=== PATIENT | male | born 1965 | race Caucasian/White ===

== ENCOUNTER 2025-03-31 17:39 | Emergency (ER) | payer SELFPAY ==
[2025-03-31 17:40] VITALS: BMI 23.0
[2025-03-31 18:05] VITALS: BP 157/88; PULSE 81; RESP 18; TEMP 36.9; O2SAT 99
--- NOTE | 2025-03-31 18:33 | PD.EDMALE ---
ED Male Genitalurinary RME/HPI General Chief complaint: Urogenital-Male Stated complaint: SELF CATHETER NOT WORKING FOR 2 DAYS Time Seen by Provider: 03/31/25 18:08 Source: patient, RN notes reviewed and old records reviewed Arrival date/time: 03/31/25 17:39 Mode of arrival: ambulatory Limitations: no limitations RME / HPI RME / HPI Narrative: 59yom presents to ED for 2-day history of self not draining/clogged. Self was placed in this ED 1 month ago. Patient reports burning penile pain. No fever, vomiting, flank pain or hematuria reported. No medications or treatments since onset. Related Data Home Medications ?Medication ?Instructions ?Recorded ?Confirmed levothyroxine 100 mcg capsule 100 mcg PO DAILY 06/04/18 10/24/21 tamsulosin 0.4 mg capsule (Flomax) 0.4 mg PO DAILY 06/04/18 10/24/21 lisinopril 10 mg tablet 10 mg PO QDAY 05/28/19 10/24/21 oxybutynin chloride 10 mg 10 mg PO QDAY 09/20/21 10/24/21 tablet,extended release 24 hr Previous Rx's ?Medication ?Instructions ?Recorded cephalexin 500 mg capsule 500 mg PO QID #40 caps 02/28/25 hydrocodone 5 mg-acetaminophen 325 1 tab PO Q6H PRN pain #16 tabs 02/28/25 mg tablet tamsulosin 0.4 mg capsule (Flomax) 0.4 mg PO QDAY #30 caps 02/28/25 cefdinir 300 mg capsule 300 mg PO BID 7 days #14 caps 03/31/25 fluconazole 150 mg tablet See Rx Instructions .Route 03/31/25 .COMPLEX #2 tabs ibuprofen 600 mg tablet 600 mg PO Q6H PRN pain #20 tabs 03/31/25 tamsulosin 0.4 mg capsule (Flomax) 0.4 mg PO QDAY #90 caps 03/31/25 Allergies Allergy/AdvReac Type Severity Reaction Status Date / Time No Known Allergies Allergy Verified 03/31/25 17:42 Review of Systems Review of Systems Systems Reviewed: All systems reviewed, normal except as documented Constitutional Constitutional: Denies chills and Denies fever(s) Gastrointestinal Gastrointestinal: Denies abdominal pain, Denies nausea and Denies vomiting Genitourinary Genitourinary: Reports dysuria, Denies flank pain, Reports genital pain and Denies hematuria Past Medical History Past Medical History CARDIAC: Positive Hypertension GENITOURINARY: Positive Benign Prostatic Hyperplasia ENDOCRINE: Positive Hypothyroidism Social History SMOKING STATUS: Current every day smoker SUBSTANCE USE: marijuana ED Exam General Limitations: Present no limitations General appearance: Present alert and in no apparent distress Head Head exam: Present atraumatic and normocephalic Eye Eye exam: Present normal appearance, PERRL and EOMI ENT ENT exam: Present normal exam and mucous membranes moist Neck Neck exam: Present normal inspection and full ROM Chest Chest inspection: Present normal inspection and symmetric chest wall rise Respiratory Respiratory exam: Present normal lung sounds bilaterally; Absent respiratory distress Cardiovascular Cardiovascular exam: Present regular rate and normal rhythm Abdominal Exam Abdominal exam: Present soft; Absent distention, tenderness, guarding or rebound Extremities Exam Extremities exam: Present normal inspection and full ROM Neurological Exam Neurological exam: Present alert and oriented X3 Psychiatric Psychiatric exam: Present normal affect and normal mood Skin Skin exam: Present warm, dry, intact and normal color Course Quality Measures none Orders Category Date Time Status Self [Urinary Catheter] QS Care 03/31/25 18:26 Completed UA [Urinalysis] Stat Lab 03/31/25 19:50 Completed Lidocaine Jelly 2% Urojet [Xylocaine Jelly 2% Urojet] Med 03/31/25 19:11 Discontinued See Dose Instructions TOP X1 ONE Vital Signs Vital signs: Vital Signs Temperature 98.4 F 03/31/25 18:05 Pulse Rate 81 03/31/25 18:05 Respiratory Rate 18 03/31/25 18:05 Blood Pressure 157/88 H 03/31/25 18:05 Pulse Oximetry (%) 99 03/31/25 18:05 Oxygen Delivery Method Room Air 03/31/25 18:05 Urogenital - Male MDM Narrative MDM Narrative:: 59yom presents to ED for 2-day history of self not draining/clogged. Self was placed in this ED 1 month ago. Patient reports burning penile pain. No fever, vomiting, flank pain or hematuria reported. No medications or treatments since onset. Self successfully replaced. Will treat for UTI, urine culture sent and pending. Prior culture from 02/28/2025 reviewed. Encouraged close follow-up with urology in clinic. Stable for discharge, RTED precautions given. Patient data External records reviewed:: [facility] previous records (ED visit 02/28/2025 for BPH, Self placement) Clinical information provided by:: patient Social determinants that could affect healthcare access:: other (specify) (Poor access to healthcare, lack of insurance) Patient has the following chronic illnesses:: BPH How is presenting disease/condition affected by chronic disease/condition?: caused by Evaluation data The following diagnostics were reviewed and interpreted by me:: lab results Lab and/or radiology exams considered but not ordered:: None Interpretation Summary: na Medications / Prescriptions Medications or Prescriptions considered but not ordered:: None Medication administrations:: Medication Administration History Discontinued Medications Lidocaine HCl (Lidocaine Jelly 2% (Urojet) 10 Ml Tube) 0 ml TOP X1 ONE Stop: 03/31/25 19:12 Last Admin: 03/31/25 20:03 Dose: 10 ml Documented By: SERINA Comments: unable to scan Above medication administered in ED Consultations Consultation(s) initiated? (list below): No Diagnosis Urogenital Male Differential Diagnosis: urinary tract infection, urethritis, prostatitis and acute retention of urine Most likely diagnosis given after review of the tests above:: Self issue, UTI Admission Indicated Admission indicated?: not indicated Admission Request Was there a request for admission?: No Disposition Plan Disposition Plan: Discharge Discharge Attestation Discharge Attestation: The patient and all family members were given an opportunity to ask questions and understood the discharge instructions. Discharge instructions specifically effects, indications for sooner follow up or return to the emergency department, and the expected course of current diagnosis. Patient condition: Stable Discharge Plan Plan Patient Disposition: HOME (Self Care) Patient condition on transfer: Stable Prescriptions/Referrals Prescriptions/Med Rec: New cefdinir 300 mg capsule 300 mg PO BID 7 Days Qty: 14 0RF ibuprofen 600 mg tablet 600 mg PO Q6H PRN (Reason: pain) Qty: 20 0RF tamsulosin [Flomax] 0.4 mg capsule 0.4 mg PO QDAY Qty: 90 0RF fluconazole 150 mg tablet See Rx Instructions .ROUTE .COMPLEX Qty: 2 0RF Rx Instructions: Take 150mg tab orally now. Repeat dose in 5-7 days. No Action lisinopril 10 mg tablet 10 mg PO QDAY oxybutynin chloride 10 mg tablet extended release 24 hr 10 mg PO QDAY tamsulosin [Flomax] 0.4 mg Capsule 0.4 mg PO DAILY levothyroxine 100 mcg Capsule 100 mcg PO DAILY cephalexin 500 mg capsule 500 mg PO QID Qty: 40 0RF hydrocodone-acetaminophen 5-325 mg tablet 1 tab PO Q6H MDD max 4 tabs per day PRN (Reason: pain) Qty: 16 0RF tamsulosin [Flomax] 0.4 mg capsule 0.4 mg PO QDAY Qty: 30 0RF Referrals: Piedad Franklin PA-C [Primary Care Provider, Family Practice] - In 1 week Problem List Clinical Impression: Acute UTI, Encounter for Self catheter replacement Patient/Caregiver Discharge Instructions Education Materials: ED Bladder Infection, Male (Adult) Print Language: Trinidadian Stand Alone Forms: Jeaneth Award Info., Work/School Release, Patient Portal Info Letter GEO/GERARDO Supervising Physician GEO/GERARDO Supervising Physician: Aiden
[2025-03-31] MEDS: LIDOCAINE JELLY 2% (Urojet) 10 ML TUBE TOP (20:03)
[2025-03-31 20:10] LABS: Collection Type, Urine Catheter; Squamous Epithelial Cell,Urine 0 /hpf (0-5)
[2025-03-31 20:22] LABS: Bacteria,Urine Rare; Bilirubin,Urine Negative (Negative); Blood,Urine 3+ (Negative); Budding Yeast,Urine Present; Glucose, Urine Negative (Negative); Ketones,Urine Negative (Negative); Leukocyte Esterase,Urine Positive (Negative); Nitrite,Urine Positive (Negative); PH,Urine 8.0 (5.0-7.0); Protein,Urine 3+ (Neg - Trace); RBC,Urine 1071 /hpf (0-3); Specific Gravity,Urine 1.018 (1.001-1.035); Urobilinogen,Urine Negative mg/dL (0.0-1.0); WBC,Urine 108 /hpf (0-5)
[2025-03-31 20:23] LABS: Amorphous Crystals,Urine Present (Absent); Triple Phosphate Crystal,Urine 1+
[2025-03-31 20:24] LABS: Clarity,Urine Turbid (Clear/Hazy); Color,Urine Lt-Orange (Lt Yel-Yel)
== END 2025-03-31 20:27 | disposition home or self-care (01) ==
PROVIDERS: Physician Assistant; Emergency Provider Emergency Medicine; PCP Physician Assistant
DX: N39.0 Urinary tract infection, site not specified (principal)
CPT/HCPCS: 51702; 81001; 87086; 99283; A4314

== ENCOUNTER 2025-04-20 15:21 | Emergency (ER) | payer SELFPAY ==
[2025-04-20 15:22] VITALS: BMI 23.4
[2025-04-20 15:50] VITALS: BP 199/117; PULSE 78; RESP 18; TEMP 36.6; O2SAT 97; BMI 23.4
[2025-04-20 16:10] VITALS: BP 189/103; PULSE 83
--- NOTE | 2025-04-20 16:45 | PD.EDMALE ---
ED Male Genitalurinary RME/HPI General Chief complaint: Urogenital-Male Stated complaint: F/C LEAKING Time Seen by Provider: 04/20/25 16:42 Arrival date/time: 04/20/25 15:21 Limitations: no limitations RME / HPI Exacerbating factors: sexual intercourse RME / HPI Narrative: 59 year old male with history of hypertension, hypothyroidism, BPH presents to the ED for evaluation of self catheter leaking and minimal drainage in the self bag beginning 2 days ago. States the catheter was placed 4 weeks ago. States he just finished a course of abx last week for a UTI and feels it has not cleared. Denies any flank pain, fevers, chills, abdominal pain. Patient has a hx of recurrent UTIs States he has a self catheter inserted for the first time 2 months ago and reportedly every time it had been changed (every 4 weeks), there was bleeding. Urologist: Dr. Bass however due to insurance issues has been unable to see. Related Data Home Medications ?Medication ?Instructions ?Recorded ?Confirmed levothyroxine 100 mcg capsule 100 mcg PO DAILY 06/04/18 10/24/21 tamsulosin 0.4 mg capsule (Flomax) 0.4 mg PO DAILY 06/04/18 10/24/21 lisinopril 10 mg tablet 10 mg PO QDAY 05/28/19 10/24/21 oxybutynin chloride 10 mg 10 mg PO QDAY 09/20/21 10/24/21 tablet,extended release 24 hr Previous Rx's ?Medication ?Instructions ?Recorded cephalexin 500 mg capsule 500 mg PO QID #40 caps 02/28/25 hydrocodone 5 mg-acetaminophen 325 1 tab PO Q6H PRN pain #16 tabs 02/28/25 mg tablet tamsulosin 0.4 mg capsule (Flomax) 0.4 mg PO QDAY #30 caps 02/28/25 fluconazole 150 mg tablet See Rx Instructions .Route 03/31/25 .COMPLEX #2 tabs ibuprofen 600 mg tablet 600 mg PO Q6H PRN pain #20 tabs 03/31/25 tamsulosin 0.4 mg capsule (Flomax) 0.4 mg PO QDAY #90 caps 03/31/25 cephalexin 500 mg capsule 500 mg PO QID #40 caps 04/20/25 Allergies Allergy/AdvReac Type Severity Reaction Status Date / Time No Known Allergies Allergy Verified 03/31/25 17:42 Review of Systems Review of Systems Systems Reviewed: All systems reviewed, normal except as documented Past Medical History Past Medical History CARDIAC: Positive Hypertension GENITOURINARY: Positive Benign Prostatic Hyperplasia ENDOCRINE: Positive Hypothyroidism Social History SMOKING STATUS: Current every day smoker SUBSTANCE USE: marijuana ED Exam General Limitations: Present no limitations General appearance: Present alert and in no apparent distress Head Head exam: Present atraumatic and normocephalic Eye Eye exam: Present normal appearance, PERRL and EOMI ENT ENT exam: Present normal exam, normal oropharynx and mucous membranes moist Neck Neck exam: Present normal inspection, full ROM and trachea midline Chest Chest inspection: Present normal inspection and symmetric chest wall rise Respiratory Respiratory exam: Present normal lung sounds bilaterally Cardiovascular Cardiovascular exam: Present regular rate, normal rhythm and normal heart sounds Abdominal Exam Abdominal exam: Present soft and normal bowel sounds; Absent distention, tenderness, guarding, rebound or rigidity exam: Present normal inspection Extremities Exam Extremities exam: Present normal inspection and full ROM Neurological Exam Neurological exam: Present alert, oriented X3 and CN II-XII intact Psychiatric Psychiatric exam: Present normal affect and normal mood Skin Skin exam: Present warm, dry, intact and normal color Course Quality Measures none Orders Category Date Time Status Self [Urinary Catheter] NOW Care 04/20/25 15:59 Completed Self to Leg Bag NOW Care 04/20/25 16:00 Ordered UA, C/S IF [Urinalysis, C/S if Indicated] Stat Lab 04/20/25 17:12 Completed Urine Culture Stat Lab 04/20/25 17:12 Completed Lidocaine Jelly 2% Urojet [Xylocaine Jelly 2% Urojet] Med 04/20/25 16:38 Discontinued See Dose Instructions TOP X1 ONE cefTRIAXone [Rocephin] 1,000 mg Med 04/20/25 18:17 Discontinued Lidocaine 1% Pf Vial 5ml [Xylocaine 1% 5 ml] 2.1 ml IM X1 cloNIDine HCL [Catapres] Med 04/20/25 16:00 Discontinued 0.2 mg PO X1 ONE Vital Signs Vital signs: Vital Signs Temperature 97.8 F 04/20/25 15:50 Pulse Rate 78 04/20/25 15:50 Respiratory Rate 18 04/20/25 15:50 Blood Pressure 199/117 H 04/20/25 15:50 Pulse Oximetry (%) 97 04/20/25 15:50 Oxygen Delivery Method Room Air 04/20/25 15:50 Pulse ox is 97% on room air which is adequate. Urogenital - Male [facility] Narrative [facility] Narrative:: Oralia Conti am scribing for and in the presence of Dr. Lance. Patient is a 59 yo male that is in the ED with concerns for dysfunctioning urinary catheter. VS and exam as listed. Concern for UTI. Patient's urinary catheter exachanged, UA showed infection, abx provided. Patient not septic, no flank pain less likely pyelonephritis. Dc'd to home with recommendation to follow up with pcp and urologist. Patient data External records reviewed:: [facility] previous records Clinical information provided by:: patient Social determinants that could affect healthcare access:: none Patient has the following chronic illnesses:: hypertension, hypothyroidism, BPH How is presenting disease/condition affected by chronic disease/condition?: exacerbated by Evaluation data The following diagnostics were reviewed and interpreted by me:: lab results Lab and/or radiology exams considered but not ordered:: None Interpretation Summary: See MDM Medications / Prescriptions Medications or Prescriptions considered but not ordered:: None Medication administrations:: Medication Administration History Discontinued Medications Clonidine (Clonidine Hcl 0.1 Mg Tablet) 0.2 mg PO X1 ONE Stop: 04/20/25 16:01 Last Admin: 04/20/25 16:10 Dose: 0.2 mg Documented By: SHANNAN Ceftriaxone Sodium 1,000 mg/ (Lidocaine HCl 2.1 ml) 0 mg IM X1 ONE Stop: 04/20/25 18:18 Last Admin: 04/20/25 18:30 Dose: 1,000 mg Documented By: SERINA Lidocaine HCl (Lidocaine Jelly 2% (Urojet) 10 Ml Tube) 0 ml TOP X1 ONE Stop: 04/20/25 16:39 Last Admin: 04/20/25 16:59 Dose: 10 ml Documented By: SHANNAN See above Consultations Consultation(s) initiated? (list below): No Diagnosis Urogenital Male Differential Diagnosis: urinary tract infection, prostatitis and acute retention of urine Most likely diagnosis given after review of the tests above:: See [facility] Admission Indicated Admission indicated?: not indicated Admission Request Was there a request for admission?: No Disposition Plan Disposition Plan: Discharge Discharge Attestation Discharge Attestation: The patient and all family members were given an opportunity to ask questions and understood the discharge instructions. Discharge instructions specifically effects, indications for sooner follow up or return to the emergency department, and the expected course of current diagnosis. Patient condition: Stable Discharge Plan Plan Patient Disposition: HOME (Self Care) Prescriptions/Referrals Prescriptions/Med Rec: New cephalexin 500 mg capsule 500 mg PO QID Qty: 40 0RF No Action lisinopril 10 mg tablet 10 mg PO QDAY oxybutynin chloride 10 mg tablet extended release 24 hr 10 mg PO QDAY tamsulosin [Flomax] 0.4 mg Capsule 0.4 mg PO DAILY levothyroxine 100 mcg Capsule 100 mcg PO DAILY cephalexin 500 mg capsule 500 mg PO QID Qty: 40 0RF hydrocodone-acetaminophen 5-325 mg tablet 1 tab PO Q6H MDD max 4 tabs per day PRN (Reason: pain) Qty: 16 0RF tamsulosin [Flomax] 0.4 mg capsule 0.4 mg PO QDAY Qty: 30 0RF ibuprofen 600 mg tablet 600 mg PO Q6H PRN (Reason: pain) Qty: 20 0RF tamsulosin [Flomax] 0.4 mg capsule 0.4 mg PO QDAY Qty: 90 0RF fluconazole 150 mg tablet See Rx Instructions .ROUTE .COMPLEX Qty: 2 0RF Rx Instructions: Take 150mg tab orally now. Repeat dose in 5-7 days. Referrals: Piedad Franklin PA-C [Primary Care Provider, Family Practice] - In 1 week Problem List Clinical Impression: Urinary tract infection Patient/Caregiver Discharge Instructions Education Materials: ED Bladder Infection, Male (Adult) Additional Instructions: Urine has evidence of urinary tract infection, we checked the sensitivities and they are sensitive to ceftriaxone which we have provided for you today in the emergency department. I felt sensitive to cephalexin which we have prescribed for home. Please take your prescription until completion. Please follow-up with your neurologist within the next 1 to 2 days. Return immediately for worsening symptoms or any other symptom of concern.. Print Language: Mongolian Stand Alone Forms: Jeaneth Award Info., Patient Portal Info Letter
[2025-04-20] MEDS: LIDOCAINE JELLY 2% (Urojet) 10 ML TUBE TOP (16:59)
[2025-04-20 17:22] LABS: Collection Type, Urine Clean Catch; Squamous Epithelial Cell,Urine 0 /hpf (0-5)
--- NOTE | 2025-04-20 17:41 | PC.NURSE ---
self catheter that pt came in with was removed, new catheter was inserted 350ml of urine drained, pt denies any pain at this time
[2025-04-20 17:42] LABS: Bilirubin,Urine Negative (Negative); Blood,Urine 3+ (Negative); Color,Urine Yellow (Lt Yel-Yel); Glucose, Urine Negative (Negative); Ketones,Urine Negative (Negative); Leukocyte Esterase,Urine Positive (Negative); Nitrite,Urine Negative (Negative); PH,Urine 7.5 (5.0-7.0); Protein,Urine 1+ (Neg - Trace); RBC,Urine 328 /hpf (0-3); Specific Gravity,Urine 1.012 (1.001-1.035); Urobilinogen,Urine Negative mg/dL (0.0-1.0); WBC,Urine 677 /hpf (0-5)
[2025-04-20 17:43] LABS: Clarity,Urine Hazy (Clear/Hazy); Culture Indicated,Urine Yes
== END 2025-04-20 19:32 | disposition home or self-care (01) ==
PROVIDERS: Nurse Practitioner Primary Care; Emergency Provider Emergency Medicine; PCP Physician Assistant
DX: N39.0 Urinary tract infection, site not specified (principal); E03.9 Hypothyroidism, unspecified; I10 Essential (primary) hypertension; N40.0 Benign prostatic hyperplasia without lower urinary tract symptoms
CPT/HCPCS: 51702; 81001; 87077; 87086; 87186; 96372; 99283; A4314; J0696; J3490; A9270

== ENCOUNTER 2025-05-17 10:52 | Emergency (ER) | payer SELFPAY ==
[2025-05-17 11:22] VITALS: BP 220/128; PULSE 83; RESP 18; TEMP 36.4; O2SAT 98; BMI 23.0
--- NOTE | 2025-05-17 11:46 | EKG_ITS ---
[facility] Test Date: 2025-05-17 Pat Name: YAMILE GONZALEZ Department: Room: - Gender: Male [employer]: : 1965 Requested By: Delano Raymundo Order Number: [id number] Reading MD: Delano Raymundo Measurements Intervals [place] Rate: 84 P: 59 TX: 129 QRS: 70 QRSD: 96 T: 67 QT: 337 QTc: 398 Interpretive Statements SINUS RHYTHM MINIMAL VOLTAGE CRITERIA FOR LVH, CONSIDER NORMAL VARIANT [MEETS CRITERIA IN ONE OF: R(aVL), S(V1), R(V5), R(V5/V6)+S(V1)] No previous ECG available for comparison /store/S0/[id number].pdf
--- NOTE | 2025-05-17 11:48 | PD.EDADULT ---
ED General RME/HPI General Chief complaint: Urogenital-Male Stated complaint: Veronica cathetar not working Time Seen by Provider: 05/17/25 11:45 Arrival date/time: 05/17/25 10:52 CC: Inability to urinate and painful urination HPI patient has an indwelling Veronica catheter for the past 3 months has secondary to a bladder mass, the patient state he has not had follow-up due to current insurance issues, the patient was also noted be hypertensive and admits that he has not been taking his antihypertension medications for the past 3 days. Currently the patient denies chest pain fever chills nausea or vomiting. Related Data Home Medications ?Medication ?Instructions ?Recorded ?Confirmed levothyroxine 100 mcg capsule 100 mcg PO DAILY 06/04/18 10/24/21 tamsulosin 0.4 mg capsule (Flomax) 0.4 mg PO DAILY 06/04/18 10/24/21 lisinopril 10 mg tablet 10 mg PO QDAY 05/28/19 10/24/21 oxybutynin chloride 10 mg 10 mg PO QDAY 09/20/21 10/24/21 tablet,extended release 24 hr Previous Rx's ?Medication ?Instructions ?Recorded cephalexin 500 mg capsule 500 mg PO QID #40 caps 02/28/25 hydrocodone 5 mg-acetaminophen 325 1 tab PO Q6H PRN pain #16 tabs 02/28/25 mg tablet tamsulosin 0.4 mg capsule (Flomax) 0.4 mg PO QDAY #30 caps 02/28/25 fluconazole 150 mg tablet See Rx Instructions .Route 03/31/25 .COMPLEX #2 tabs ibuprofen 600 mg tablet 600 mg PO Q6H PRN pain #20 tabs 03/31/25 tamsulosin 0.4 mg capsule (Flomax) 0.4 mg PO QDAY #90 caps 03/31/25 cephalexin 500 mg capsule 500 mg PO QID #40 caps 04/20/25 ciprofloxacin HCl 500 mg tablet 500 mg PO BID #14 tabs 05/17/25 (Cipro) Allergies Allergy/AdvReac Type Severity Reaction Status Date / Time No Known Allergies Allergy Verified 05/17/25 10:55 Review of Systems Review of Systems Narrative Review of Systems: GEN: No fever, no chills, no weight loss EYES: No discharge, no visual changes, no pain HEENT: No ear pain, no congestion, no sore throat PULM: No shortness of breath, no cough, no congestion CV: No chest pain, no dyspnea on exertion, no palpitations GI: No nausea, no vomiting, no diarrhea, no pain, no constipation : No frequency, no urgency, + dysuria MUSC/SKEL: No joint pain, no back pain SKIN: No rash PSYCH: No hallucinations, no depression HEME/LYMPH: No easy bleeding or bruising tendencies NEURO: No weakness, no headache Past Medical History Past Medical History CARDIAC: Positive Hypertension; Negative Congestive Heart Failure RESPIRATORY: Negative Chronic Obstructive Pulmonary Disease (COPD) GENITOURINARY: Positive Benign Prostatic Hyperplasia; Negative Renal Disease ENDOCRINE: Positive Hypothyroidism; Negative Diabetes Mellitus Type 1 or Diabetes Mellitus Type 2 Social History SMOKING STATUS: Current every day smoker SUBSTANCE USE: marijuana ED Exam Narrative Physical exam: [General: In moderate discomfort but not in any acute distress Head normocephalic HEENT: Within acceptable limits Neck is supple nontender Chest equal chest rise nontender to palpation Respiratory: Clear to auscultation no wheezes crackles or rubs CV: Rate rhythm is regular no murmurs rubs or clicks Abdomen is soft nontender no masses positive bowel sounds all 4 quadrants Back: No CVA tenderness no spinous process tenderness from cervical spine thoracic and lumbar spine Skin: Intact no petechiae rash induration ulceration or crepitus Extremities: Moving all extremity against resistance cap refill less than 2 seconds neurosensory intact Neuro: Awake alert oriented x3 Glascow coma 15 no focal deficits] Course Course Course Narrative: Review of the labs show that the patient has no signs of endorgan damage but he is methamphetamine positive, the patient has had a long use of it. He admits it is difficult to get off the medicine meth . Patient is advised strongly continue to take his lisinopril and follow-up with a primary care doctor including following up on his referral to urology. Upon reassessment at 1427, patient's blood pressure is 141/90, patient states he feels much better after the Veronica catheter was changed out. The urine has no bacteria but is leukocyte esterase and nitrite positive we will start him on ciprofloxacin. Patient advised if there is worsening of symptoms to return the emergency room for reevaluation. Quality Measures none Orders Category Date Time Status EKG (ED ONLY) *Do not use* NOW Care 05/17/25 11:47 Completed Veronica [Urinary Catheter] QS Care 05/17/25 11:46 Active EKG (ED Only) Stat Exams 05/17/25 11:46 Draft B-Type Natriuretic Peptide Stat Lab 05/17/25 12:58 Completed CBC Stat Lab 05/17/25 12:58 Completed Comprehensive Metabolic Panel Stat Lab 05/17/25 12:58 Completed Drug Screen,Urine Stat Lab 05/17/25 12:27 Completed LDH (Lactate Dehydrogenase) Stat Lab 05/17/25 12:58 Completed Magnesium Stat Lab 05/17/25 12:58 Completed Partial Thromboplastin Time Stat Lab 05/17/25 12:58 Completed Prothrombin Time with INR Stat Lab 05/17/25 12:58 Completed Urinalysis, C/S if Indicated Stat Lab 05/17/25 12:27 Completed Urine Culture Stat Lab 05/17/25 12:27 Received Lisinopril [Prinivil] Med 05/17/25 11:46 Discontinued 20 mg PO X1 ONE hydrALAZINE HCL [Apresoline] Med 05/17/25 11:46 Discontinued 10 mg PO X1 ONE Vital Signs Vital signs: Vital Signs Temperature 97.5 F 05/17/25 11:22 Pulse Rate 83 05/17/25 11:22 Respiratory Rate 18 05/17/25 11:22 Blood Pressure 220/128 H 05/17/25 11:22 Pulse Oximetry (%) 98 05/17/25 11:22 Oxygen Delivery Method Room Air 05/17/25 11:22 Discharge Plan Plan Patient Disposition: HOME (Self Care) Patient condition on transfer: Stable Prescriptions/Referrals Prescriptions/Med Rec: New ciprofloxacin HCl [Cipro] 500 mg tablet 500 mg PO BID Qty: 14 0RF No Action lisinopril 10 mg tablet 10 mg PO QDAY oxybutynin chloride 10 mg tablet extended release 24 hr 10 mg PO QDAY tamsulosin [Flomax] 0.4 mg Capsule 0.4 mg PO DAILY levothyroxine 100 mcg Capsule 100 mcg PO DAILY cephalexin 500 mg capsule 500 mg PO QID Qty: 40 0RF hydrocodone-acetaminophen 5-325 mg tablet 1 tab PO Q6H MDD max 4 tabs per day PRN (Reason: pain) Qty: 16 0RF tamsulosin [Flomax] 0.4 mg capsule 0.4 mg PO QDAY Qty: 30 0RF ibuprofen 600 mg tablet 600 mg PO Q6H PRN (Reason: pain) Qty: 20 0RF tamsulosin [Flomax] 0.4 mg capsule 0.4 mg PO QDAY Qty: 90 0RF fluconazole 150 mg tablet See Rx Instructions .ROUTE .COMPLEX Qty: 2 0RF Rx Instructions: Take 150mg tab orally now. Repeat dose in 5-7 days. cephalexin 500 mg capsule 500 mg PO QID Qty: 40 0RF Problem List Clinical Impression: Urinary catheter (Veronica) change required, UTI (urinary tract infection), Methamphetamine abuse, Hypertension Patient/Caregiver Discharge Instructions Education Materials: Understanding Methamphetamine ..., ED Veronica Catheter, Care, ED Hypertension, Established Print Language: Qatari Stand Alone Forms: Jeaneth Award Info., Patient Portal Info Letter GEO/GERARDO Supervising Physician GEO/GERARDO Supervising Physician: Delano Ward ENP MDM Clinical Information Provided by: patient Medical Records reviewed [facility] Meds/Rx considered, not ordered None Labs/Rad/Tests considered, not ordered None Chronic Illness/Social Conditions Explain: Bladder mass without follow-up hypertension Labs Labs: interpreted by nc Lab(s) Interpretation(s): CBC shows no acute leukocytosis H&H of 12.7 and 38.1 respectively platelets of 272. Coags within acceptable limits CMP shows a chloride of 109 BUN of 19 and creatinine of 0.9 glucose at 113. No transaminitis or T. bili elevation BNP at 111 Urine is brown bloody 1+ protein 3+ blood nitrite positive leukocyte esterase positive WBCs at 587 RBCs at 2471. UDS is positive for amphetamines and THC. Imaging Imaging interpretation: none Medication Administration(s) Medication Administration History Discontinued Medications Hydralazine HCl (Hydralazine Hcl 10 Mg Tablet) 10 mg PO X1 ONE Stop: 05/17/25 11:47 Last Admin: 05/17/25 13:20 Dose: 10 mg Documented By: SERINA Lisinopril (Lisinopril 20 Mg Tablet) 20 mg PO X1 ONE Stop: 05/17/25 11:47 Last Admin: 05/17/25 12:04 Dose: 20 mg Documented By: SERINA
[2025-05-17 12:04] VITALS: BP 220/128; PULSE 83
[2025-05-17 12:39] LABS: Collection Type, Urine Clean Catch; Squamous Epithelial Cell,Urine 0 /hpf (0-5)
[2025-05-17 12:46] LABS: Bilirubin,Urine Negative (Negative); Blood,Urine 3+ (Negative); Color,Urine Brown (Lt Yel-Yel); Glucose, Urine Negative (Negative); Ketones,Urine Negative (Negative); Leukocyte Esterase,Urine Positive (Negative); Nitrite,Urine Positive (Negative); PH,Urine 8.0 (5.0-7.0); Protein,Urine 1+ (Neg - Trace); RBC,Urine 2471 /hpf (0-3); Specific Gravity,Urine 1.012 (1.001-1.035); Urobilinogen,Urine Negative mg/dL (0.0-1.0); WBC,Urine 587 /hpf (0-5)
[2025-05-17 12:47] LABS: Clarity,Urine Bloody (Clear/Hazy); Culture Indicated,Urine Yes
[2025-05-17 13:15] LABS: Basophils # (Auto) 0.0 Thou/mm3 (0.0-0.2); Basophils % (Auto) 0 % (0-2.5); Eosinophils # (Auto) 0.1 Thou/mm3 (0.0-0.5); Eosinophils % (Auto) 1 % (0-10); Hematocrit 38.1 % (41.0-53.0); Hemoglobin 12.7 g/dL (13.5-16.0); Immature Granulocytes Auto 0.03 Thou/mm3 (0.00-0.00); Lymphocytes # (Auto) 1.2 Thou/mm3 (1.0-4.8); Lymphocytes % (Auto) 12 % (10-50); Mean Corpuscular HGB Conc 33.3 g/dl (31.0-37.0); Mean Corpuscular Hemoglobin 29.7 pg (25.0-35.0); Mean Corpuscular Volume 89 fL (80-100); Monocytes # (Auto) 0.8 Thou/mm3 (0.0-0.8); Monocytes % (Auto) 7 % (0-12); Neutrophils # (Auto) 8.2 Thou/mm3 (1.8-7.7); Neutrophils % (Auto) 80 % (37-80); Nucleated Red Blood Cell # 0.00 Thou/mm3 (0.00-0.00); Nucleated Red Blood Cell % 0 /100 WBC (0); Platelet Count 272 Thou/mm3 (140-440); RDW Standard Deviation 44.7 fL (35.1-43.9); Red Blood Count 4.27 Miln/mm3 (4.50-5.90); White Blood Count 10.3 Thou/mm3 (3.8-10.6)
[2025-05-17 13:20] VITALS: BP 220/183; PULSE 83
[2025-05-17 13:22] LABS: Amphetamine/Methamp Scrn,U Positive (Negative); Barbiturate Screen,Urine Negative (Negative); Benzodiazepines Screen,Urine Negative (Negative); Benzoylecgonine Screen, Ur Negative (Negative); Fentanyl Screen,Urine Negative (Negative); Opiate Screen,Urine Negative (Negative); THC Screen,Urine Positive (Negative)
[2025-05-17 13:27] LABS: INR 1.0 (0.9-1.3); Partial Thromboplastin Time 26.0 Seconds (22.0-36.0); Prothrombin Time 10.3 Seconds (9.0-12.2)
[2025-05-17 13:31] LABS: Alanine Aminotransferase 22 U/L (10-49); Albumin, Serum 4.3 gm/dL (3.4-4.8); Albumin/Globulin Ratio 1.7 (1.2-2.2); Alkaline Phosphatase 95 U/L (46-116); Anion Gap 10 (7-16); Aspartate Amino Transferase 25 U/L (0-34); BUN/Creatinine Ratio 21 Ratio (12-20); Bilirubin,Total 0.3 mg/dL (0.3-1.2); Blood Urea Nitrogen 19 mg/dL (9-23); Calcium 9.7 mg/dL (8.3-10.6); Calcium (Corrected) 9.7 mg/dL (8.5-10.1); Carbon Dioxide 26.3 mMol/L (20.0-31.0); Chloride 109 mMol/L (98-107); Creatinine (Component) 0.9 mg/dL (0.6-1.3); Estimated Creatinine Clearance 92.4 mL/min (>60); Globulin 2.6 gm/dL (2.3-3.5); Glucose 113 mg/dL (74-106); LDH (Lactate Dehydrogenase) 204 U/L (120-246); Magnesium 2.0 mg/dL (1.6-2.6); Osmolality,Calculated 291 (275-295); Potassium 3.7 mMol/L (3.4-5.1); Sodium 145 mMol/L (136-145); Total Protein 6.9 gm/dL (5.7-8.2); eGFR > 60 See Note
[2025-05-17 13:44] LABS: B-Type Natriuretic Peptide 111 pg/mL (0-100)
== END 2025-05-17 15:39 | disposition home or self-care (01) ==
LOC: SERX 14:40
PROVIDERS: Registered Nurse General Practice; Emergency Provider Family Medicine
DX: N39.0 Urinary tract infection, site not specified (principal); I10 Essential (primary) hypertension; F15.10 Other stimulant abuse, uncomplicated; Z91.148 Patient's other noncompliance with medication regimen for other reason; Z46.6 Encounter for fitting and adjustment of urinary device
CPT/HCPCS: 36415; 51702; 80053; 80307; 81001; 83615; 83735; 83880; 85025; 85610; 85730; 87077; 87086; 87186; 93005; 99283; A4314; A9270

== ENCOUNTER 2025-05-24 19:30 | Emergency (ER) | payer SELFPAY ==
[2025-05-24 19:31] VITALS: BMI 23.3
--- NOTE | 2025-05-24 20:37 | PC.NURSE ---
CALLED FOR PT FROM LOBBY/OUTSIDE, NO ANSWERX1@ [id number]
--- NOTE | 2025-05-24 20:49 | PC.NURSE ---
CALLED FOR PT FROMLOBBY/OUTSIDE, NO ANSWERX2@ 2048
--- NOTE | 2025-05-24 21:02 | PC.NURSE ---
NAX1 2036 NAX2 2049 NAX3 210 PT ELOPED THE ER.
== END 2025-05-25 01:06 | disposition left against medical advice (07) ==
LOC: SERX 21:16
PROVIDERS: Emergency Provider Family Medicine
DX: Z53.21 Procedure and treatment not carried out due to patient leaving prior to being seen by health care provider (principal)
CPT/HCPCS: 99281

== ENCOUNTER 2025-05-25 10:34 | Emergency (ER) | payer SELFPAY ==
[2025-05-25 10:34] VITALS: BMI 23.3
[2025-05-25 10:51] VITALS: BP 188/103; PULSE 86; RESP 17; TEMP 36.9; O2SAT 99; BMI 23.3
--- NOTE | 2025-05-25 10:54 | PD.EDMALE ---
ED Male Genitalurinary RME/HPI General Chief complaint: Urogenital-Male Stated complaint: CATHETER CLOGGED Time Seen by Provider: 05/25/25 10:53 Arrival date/time: 05/25/25 10:34 59-year-old male with Veronica catheter in place presents with concerns that is not draining properly. Patient also reports he was given a prescription for antibiotics which he has not picked up yet Limitations: no limitations Related Data Home Medications ?Medication ?Instructions ?Recorded ?Confirmed levothyroxine 100 mcg capsule 100 mcg PO DAILY 06/04/18 10/24/21 tamsulosin 0.4 mg capsule (Flomax) 0.4 mg PO DAILY 06/04/18 10/24/21 lisinopril 10 mg tablet 10 mg PO QDAY 05/28/19 10/24/21 oxybutynin chloride 10 mg 10 mg PO QDAY 09/20/21 10/24/21 tablet,extended release 24 hr Previous Rx's ?Medication ?Instructions ?Recorded cephalexin 500 mg capsule 500 mg PO QID #40 caps 02/28/25 hydrocodone 5 mg-acetaminophen 325 1 tab PO Q6H PRN pain #16 tabs 02/28/25 mg tablet tamsulosin 0.4 mg capsule (Flomax) 0.4 mg PO QDAY #30 caps 02/28/25 fluconazole 150 mg tablet See Rx Instructions .Route 03/31/25 .COMPLEX #2 tabs ibuprofen 600 mg tablet 600 mg PO Q6H PRN pain #20 tabs 03/31/25 tamsulosin 0.4 mg capsule (Flomax) 0.4 mg PO QDAY #90 caps 03/31/25 cephalexin 500 mg capsule 500 mg PO QID #40 caps 04/20/25 ciprofloxacin HCl 500 mg tablet 500 mg PO BID #14 tabs 05/17/25 (Cipro) Allergies Allergy/AdvReac Type Severity Reaction Status Date / Time No Known Allergies Allergy Verified 05/17/25 10:55 Review of Systems Review of Systems Systems Reviewed: All systems reviewed, normal except as documented Constitutional Constitutional: Reports system reviewed and no additional complaints, except as documented, Denies fever(s) and Denies headache(s) Eyes Eyes: Reports system reviewed and no additional complaints, except as documented and Denies blurry vision ENT Ears, Nose, Mouth, and Throat: Reports system reviewed and no additional complaints, except as documented, Denies headache(s), Denies nasal congestion and Denies nasal discharge Cardiovascular Cardiovascular: Reports system reviewed and no additional complaints, except as documented, Denies chest pain and Denies dyspnea Respiratory Respiratory: Reports system reviewed and no additional complaints, except as documented, Denies chest congestion, Denies cough and Denies dyspnea Gastrointestinal Gastrointestinal: Reports system reviewed and no additional complaints, except as documented and Denies abdominal pain Genitourinary Genitourinary: Reports system reviewed and no additional complaints, except as documented and Reports other (Veronica catheter in place) Integumentary/Breasts Skin/Breast: Reports system reviewed and no additional complaints, except as documented and Denies rash Neurologic Neurologic: Reports system reviewed and no additional complaints, except as documented, Reports as per HPI and Denies headache(s) Past Medical History Past Medical History CARDIAC: Positive Hypertension; Negative Congestive Heart Failure RESPIRATORY: Negative Chronic Obstructive Pulmonary Disease (COPD) GENITOURINARY: Positive Benign Prostatic Hyperplasia; Negative Renal Disease ENDOCRINE: Positive Hypothyroidism; Negative Diabetes Mellitus Type 1 or Diabetes Mellitus Type 2 Social History SMOKING STATUS: Current every day smoker SUBSTANCE USE: marijuana ED Exam General Limitations: Present no limitations General appearance: Present alert and in no apparent distress Head Head exam: Present atraumatic Eye Eye exam: Present normal appearance, PERRL and EOMI ENT ENT exam: Present normal exam, normal oropharynx and mucous membranes moist Neck Neck exam: Present normal inspection, full ROM and trachea midline Chest Chest inspection: Present normal inspection and symmetric chest wall rise Respiratory Respiratory exam: Present normal lung sounds bilaterally Cardiovascular Cardiovascular exam: Present regular rate, normal rhythm and normal heart sounds Abdominal Exam Abdominal exam: Present soft and normal bowel sounds; Absent distention or tenderness Extremities Exam Extremities exam: Present normal inspection and full ROM Back Exam Back exam: Present normal inspection and full ROM Neurological Exam Neurological exam: Present alert, oriented X3 and CN II-XII intact Psychiatric Psychiatric exam: Present normal affect and normal mood Skin Skin exam: Present warm, dry, intact and normal color Course Quality Measures none Orders Category Date Time Status Veronica [Urinary Catheter] NOW Care 05/25/25 10:53 Active Veronica to Leg Bag NOW Care 05/25/25 10:53 Ordered Lidocaine 1% Vial 20 ml [Xylocaine 1% 20 ML] Med 05/25/25 10:53 Discontinued 2.1 ml INFL X1 ONE Lisinopril [Prinivil] Med 05/25/25 10:53 Discontinued 20 mg PO X1 ONE cefTRIAXone [Rocephin] Med 05/25/25 10:53 Discontinued 1,000 mg IM X1 ONE Vital Signs Vital signs: Vital Signs Temperature 98.4 F 05/25/25 10:51 Pulse Rate 86 05/25/25 10:51 Respiratory Rate 17 05/25/25 10:51 Blood Pressure 188/103 H 05/25/25 10:51 Pulse Oximetry (%) 99 05/25/25 10:51 Oxygen Delivery Method Room Air 05/25/25 10:51 O2 saturation 98% room air within normal limits Urogenital - Male MDM Narrative MDM Narrative:: 59-year-old male with Veronica catheter in place presents with concerns that is not draining properly. 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 Patient reports no chest pain or shortness of breath Explained to the patient he had an ultrasound couple visits ago to which he needs to follow-up with urology for further evaluation patient states understanding failure to do so consult on for outcome including Patient discharged home in no distress to follow-up with primary care doctor in the next 24 to 48 hours and for any worsening symptoms to return to the ER immediately Patient data External records reviewed:: [facility] previous records Clinical information provided by:: patient Social determinants that could affect healthcare access:: housing Patient has the following chronic illnesses:: Hypertension, hypothyroid How is presenting disease/condition affected by chronic disease/condition?: uneffected by Evaluation data The following diagnostics were reviewed and interpreted by me:: other (specify) Lab and/or radiology exams considered but not ordered:: Considered not ordered Interpretation Summary: N/A Medications / Prescriptions Medications or Prescriptions considered but not ordered:: Given Medication administrations:: Medication Administration History Discontinued Medications Ceftriaxone Sodium (Ceftriaxone Sod Inj 1,000 Mg Vial) 1,000 mg IM X1 ONE Stop: 05/25/25 10:54 Last Admin: 05/25/25 11:28 Dose: 1,000 mg Documented By: Lidocaine HCl (Lidocaine Hcl 1% 20 Ml Vial) 2.1 ml INFL X1 ONE Stop: 05/25/25 10:54 Last Admin: 05/25/25 11:29 Dose: 2.1 ml Documented By: Lisinopril (Lisinopril 20 Mg Tablet) 20 mg PO X1 ONE Stop: 05/25/25 10:54 Last Admin: 05/25/25 11:27 Dose: 20 mg Documented By: Given Consultations Consultation(s) initiated? (list below): No Diagnosis Urogenital Male Differential Diagnosis: urinary tract infection, urethritis, epididymitis and inguinal hernia Most likely diagnosis given after review of the tests above:: UTI, Veronica catheter problem Admission Indicated Admission indicated?: not indicated Admission Request Was there a request for admission?: No Disposition Plan Disposition Plan: Discharge Discharge Attestation Discharge Attestation: The patient and all family members were given an opportunity to ask questions and understood the discharge instructions. Discharge instructions specifically effects, indications for sooner follow up or return to the emergency department, and the expected course of current diagnosis. Patient condition: Stable Discharge Plan Plan Patient Disposition: HOME (Self Care) Discharge Disposition comment: Stable Prescriptions/Referrals Prescriptions/Med Rec: No Action lisinopril 10 mg tablet 10 mg PO QDAY oxybutynin chloride 10 mg tablet extended release 24 hr 10 mg PO QDAY tamsulosin [Flomax] 0.4 mg Capsule 0.4 mg PO DAILY levothyroxine 100 mcg Capsule 100 mcg PO DAILY cephalexin 500 mg capsule 500 mg PO QID Qty: 40 0RF hydrocodone-acetaminophen 5-325 mg tablet 1 tab PO Q6H MDD max 4 tabs per day PRN (Reason: pain) Qty: 16 0RF tamsulosin [Flomax] 0.4 mg capsule 0.4 mg PO QDAY Qty: 30 0RF ibuprofen 600 mg tablet 600 mg PO Q6H PRN (Reason: pain) Qty: 20 0RF tamsulosin [Flomax] 0.4 mg capsule 0.4 mg PO QDAY Qty: 90 0RF fluconazole 150 mg tablet See Rx Instructions .ROUTE .COMPLEX Qty: 2 0RF Rx Instructions: Take 150mg tab orally now. Repeat dose in 5-7 days. cephalexin 500 mg capsule 500 mg PO QID Qty: 40 0RF ciprofloxacin HCl [Cipro] 500 mg tablet 500 mg PO BID Qty: 14 0RF Problem List Clinical Impression: Veronica catheter problem, Hypertension, Noncompliance with medications Patient/Caregiver Discharge Instructions Education Materials: Blood Pressure Check Steps Additional Instructions: Please follow up with your primary care doctor in the next 24-48hrs for any worsening symptoms return here immediately You must follow-up with urology as soon as possible for worsening symptoms or concerns return immediately Print Language: [place] Verdean Stand Alone Forms: Jeaneth Award Info., Patient Portal Info Letter PA/SHOCHET Supervising Physician PA/SHOCHET Supervising Physician: Dr. Ramos
[2025-05-25 11:27] VITALS: BP 188/103; PULSE 86
[2025-05-25] MEDS: cefTRIAXone SOD INJ 1,000 MG VIAL 1000 MG IM (11:28)
[2025-05-25] MEDS: LIDOCAINE HCL 1% 20 ML VIAL 2.1 ML INFL (11:29)
== END 2025-05-25 12:00 | disposition home or self-care (01) ==
LOC: SERX 12:05
PROVIDERS: Emergency Provider Emergency Medicine; PCP Physician Assistant
DX: T83.098A Other mechanical complication of other urinary catheter, initial encounter (principal); I10 Essential (primary) hypertension; T50.906A Underdosing of unspecified drugs, medicaments and biological substances, initial encounter; F17.210 Nicotine dependence, cigarettes, uncomplicated; Y84.6 Urinary catheterization as the cause of abnormal reaction of the patient, or of later complication, without mention of misadventure at the time of the procedure; Z91.148 Patient's other noncompliance with medication regimen for other reason
CPT/HCPCS: 51702; 96372; 99283; A4314; J0696; J3490; A9270